=== PATIENT | female | born 1975 | race Caucasian/White ===

== ENCOUNTER → 2017-05-19 | Outpatient (CLI) | payer BC, OTHER ==
[~2017-05-19] MED LIST: FLUOXETINE HCL20 M1 PO; JUNEL FE 1.5-31 EACH PO; PEPCID AC20 M1 PO
== END ==
LOC: CAT 08:48
DX: N20.0 Calculus of kidney (principal); R31.9 Hematuria, unspecified

== ENCOUNTER → 2018-04-13 | Outpatient (CLI) | payer BC, OTHER | LOC: CAT 10:25 | DX: R07.9 Chest pain, unspecified (principal); R06.02 Shortness of breath ==

== ENCOUNTER → 2020-07-01 | Outpatient (CLI) | payer BC, OTHER | LOC: ULTRA 07:45 | PROVIDERS: ATTEND Family Medicine | DX: R94.5 Abnormal results of liver function studies (principal) ==

== ENCOUNTER → 2020-07-28 | Outpatient (CLI) | payer BC, OTHER | LOC: SJCVCIMAG 10:45 | PROVIDERS: ATTEND Internal Medicine Cardiovascular Disease | DX: R00.0 Tachycardia, unspecified (principal); R00.2 Palpitations; R07.9 Chest pain, unspecified; R06.00 Dyspnea, unspecified; R53.83 Other fatigue ==